=== PATIENT | female | born 1975 | race Caucasian/White ===

== ENCOUNTER → 2022-06-04 14:44 | Outpatient (CLI) | payer OTHER, MEDICAID, SELFPAY ==
--- NOTE | 2022-06-04 | DI.US.S_ITS ---
PROCEDURE: US PELVIC COMPLETE INDICATIONS: PELVIC PAIN TECHNIQUE: Real-time scanning was performed of the pelvic organs, with image documentation. Additional endovaginal scanning was necessary due to incomplete visualization of the adnexal and endometrial structures by transabdominal scanning. COMPARISON: [facility], , PELVIC COMPLETE, 06/15/2012, 10:51. FINDINGS: Uterus: Uterus is anteverted and normal in size at 11.1 x 6.5 x 5.7 cm. The myometrium is homogeneous. The endometrium measures 12.6 mm combined thickness. Ovaries: Right ovary measures 2.3 x 1.8 x 2.4 cm and the left 3.1 x 3.3 x 2.3 cm. Bilateral follicular cyst. No adnexal masses. Prominent by adnexal vessels. Other: No pathologic free abdominal or pelvic fluid. IMPRESSION: 1. Prominent by adnexal vessels which can be associated with pelvic congestion syndrome in the appropriate clinical setting. Multiparous women could have a similar appearance. We strive to produce accurate, complete, and clear reports of imaging services. To assist us in improving patient care, this report was composed using standard report templates and voice recognition software. Therefore, it may contain abnormal punctuation, insertions and/or omissions. Occasional wrong-word or sound-alike substitutions may occur. Though we review the report and make efforts to correct it, we do recommend that the report be read carefully in proper context to recognize any text inaccuracies. Dictated by: Brayan WEBSTER Interpreted: Luis Hagen MD on 06/04/2022 at 15:55 Transcribed by: ALEXANDER on 06/04/2022 at 15:56 Approved by: Luis Hagen M.D. on 06/04/2022 at 17:52
== END ==
PROVIDERS: Family Provider Family Medicine; PCP Family Medicine; Referring Provider Family Medicine; Visit Provider Family Medicine
DX: R10.2 Pelvic and perineal pain (principal); N94.89 Other specified conditions associated with female genital organs and menstrual cycle
CPT/HCPCS: 76830; 76856

== ENCOUNTER → 2022-09-11 13:23 | Outpatient (CLI) | payer OTHER, MEDICAID, SELFPAY ==
[2022-09-11 13:52] LABS: COVID19 -Nasal RAPID Negative (Negative)
== END ==
PROVIDERS: Family Provider Family Medicine; PCP Family Medicine; Visit Provider Obstetrics & Gynecology
DX: Z20.822 Contact with and (suspected) exposure to COVID-19 (principal); Z01.812 Encounter for preprocedural laboratory examination
CPT/HCPCS: 87635

== ENCOUNTER 2022-09-14 07:55 | Day surgery (SDC) | payer OTHER, MEDICAID, SELFPAY ==
[2022-09-09 08:10] VITALS: BMI 21.3
[2022-09-14] VITALS (14 sets, daily range): BP systolic 92–114; BP diastolic 46–65; PULSE 67–92; RESP 14–18; TEMP 35.8–36.9; O2SAT 97–100; BMI 20.3
--- NOTE | 2022-09-14 | PATH_ITS ---
[facility] Accession Number: [id number] No. of containers..01 Tissue . 01 Material submitted: . uterus - UTERUS AND BILATERAL FALLOPIAN TUBES . 01 Diagnosis: Uterus and Bilateral Fallopian Tubes; Hysterectomy and Bilateral Salpingectomy (Without Cervix or Adnexa): Endometrium: Proliferative phase endometrium without evidence of endometrial polyps, atypia, hyperplasia, or malignancy. Myometrium: Negative for leiomyomas, atypia or adenomyosis. Benign bilateral fallopian tubes without evidence of atypia or malignancy. Benign simple-lined cyst, consistent with paratubal cyst. MRV 09/17/2022 1442 Local . 01 Electronically signed: . Cass Smith MD, Pathologist NPI- [id number] . 01 Gross description: . The specimen is received in formalin labeled with the patient's name and uterus and bilateral fallopian tubes, and consists of a fragmented uterus (104 grams, 11.2 x 8.7 x 5.5 cm in aggregate) with two unoriented fimbriated fallopian tubes (6.6 x 0.7 cm and 6.5 x 0.8 cm, respectively) with no cervix or additional adnexa identified. The uterine serosa is maier and smooth with no adhesions or hemorrhage identified. The endometrium is red-brown and velvety and averages 0.1 cm thick with no polyps or lesions identified. Sectioning reveals a maier trabecular myometrium with no nodules or lesions identified, and the maximum thickness cannot be determined. . The longer fallopian tube has maier smooth serosa. Sectioning reveals an unremarkable stellate lumen. The shorter fallopian tube has congested smooth serosa with multiple small cystic structures measuring up to 0.1 cm in greatest dimension. Sectioning reveals an unremarkable stellate lumen. Also includes within the container is a detached thin smooth-walled cystic structure measuring 0.9 x 0.8 x 0.5 cm filled with maier serous fluid. Facilities Administrator sections are submitted as follows: . A1-A2: Facilities Administrator endometrium. A3: Possible full-thickness section. A4: Longer fallopian tube to include entire fimbriae and cross-sections. A5: Facilities Administrator serosa. A6: Reynolds fallopian tube to include entire fimbriae, cross-sections, and detached cystic structure. ([id number]) /MRV 09/17/2022 [facility] Local . 01 Pathologist provided ICD-10: N39.3, N94.89, R10.2 . 01 CPT . 850943 Specimen Comment: A courtesy copy of this report has been sent to [phone] Performed at: 01 [facility] [address] [place] [address], [place], [place] [id number] MD Osei Jack MD Phone: [phone]
[2022-09-14] MEDS: LACTATED RINGERS 1,000 ML 42 ML IV (08:36)
--- NOTE | 2022-09-14 08:56 | SUR.OPER ---
Lithotomy on padded OR bed. England Pad Positioner under torso. Head on pillow, arms padded and tucked at sides. Legs secured in padded yellow fins stirrups.
--- NOTE | 2022-09-14 09:15 | PM.PREOP ---
Pre-operative Note COVID-19 COVID-19 status: Negative Result date/Date tested (Pos, Neg/Pending): 09/11/22 Criteria for continued procedure: Continuing or worsening of significant or severe pain Interval Note History & Physical reviewed/Exam performed by Physician: Yes Changes to H&P: No
[2022-09-14] MEDS: CEFAZOLIN 2 GM/100 ML PREMIX 100 ML IV (09:53)
[2022-09-14] MEDS: BUPIVACAINE 0.5% W/ EPI (PF) 30 ML VIAL INJ (10:22)
[2022-09-14] MEDS: ROPIVACAINE 0.2% PF 2 MG/ML 10ML AMP 20 ML INJ (10:37)
--- NOTE | 2022-09-14 11:44 | PM.OP.1 ---
Operative Date/Time/Diagnoses Date of procedure: 09/14/22 Time of procedure: 11:44 Pre-op diagnosis: Pelvic pain with pelvic congestion syndrome and stress urinary incontinence Post-op diagnosis: same Procedure & Clinicians Procedure: Laparoscopic supracervical hysterectomy with bilateral salpingectomies an TVT exact retropubic suburethral sling Same procedure as scheduled: Yes Indications: Patient with significant pelvic pain with pelvic congestion syndrome seen on ultrasound and stress urinary incontinence Surgeon: Serenity Patel Screen Printing Loader Unloader: Jackelyn Chauhan Click Yes if Unassisted: No Anesthesia Type: General Operative Notes Findings: Normal appearing uterus, tubes, ovaries. Significant pelvic varicosities on the left side starting at the pelvic brim and going to the left infundibulopelvic ligament. Hypermobile urethra. Normal appearing bladder on cystoscopy with urine jets seen from the ureters bilaterally after placement of the sling needles with no seen in the bladder. Closure Type: primary Specimen(s): other (Uterus above the level of bladder and bilateral fallopian tubes) Prosthetic devices, grafts, tissues, transplants, or devices: TVT exact suburethral sling Applied: implant(s) (TVT exact suburethral sling) Estimated Blood Loss (mL): 150 Blood products transfused: none Procedure in detail: Patient is brought to the operating room where she underwent general anesthesia and [facility] She was prepped and draped in the usual sterile fashion. A check list was reviewed with the staff in the room prior to beginning of the case. Patient had pulsatile stockings in place and functional. 2 g of Ancef were in prior to beginning of the case.. A Atkins catheter was placed. A single-tooth tenaculum was placed on the anterior lip of the cervix and the cervix dilated to a #6 Hegar dilator. The uterine manipulator was placed through the cervix into the uterus with the balloon inflated with 3 mL of air. The area of the umbilical incision and the 5 mm right and left lower quadrant incisions were injected with Marcaine. An incision was made with scalpel. The verries needle was placed into the abdomen and confirmed in the appropriate place with withdrawal on a syringe and then free flow of fluid down through the needle. The abdomen was insufflated with CO2. The needle was removed and a 5 mm trocar placed without difficulty. There did not appear to be any damage is placement of the trocar. The right and left lower quadrant incisions were made with the scalpel and the trochars placed without damage to internal structures. The power seal was used to cauterize along the mesosalpinx followed by the round ligaments on both sides. The utero-ovarian ligaments were cauterized and cut. Sequential bites were taken down the broad ligaments. The uterine arteries were cauterized. An incision was made above the level bladder pushing the bladder away from the cervix. The ANTONIO loop was placed around the uterus and the uterus was amputated above the level of the bladder. Bleeding was controlled with the power seal. The monopolar spatula was used to cauterize in the endocervical canal. A supracervical incision was made and an 11 mm port placed. A 15 mm Endo Catch bag was placed in the abdomen. The uterus and tubes were placed in the bag and brought up through the suprapubic port site. The John O was placed. The uterus was hand morselized. The abdomen was reinsufflated and adequate hemostasis was noted. 20 cc of ropivacaine were placed in the abdomen over the cervix. The trochars were removed and the CO2 allowed escape from the abdomen. The fascia layer of the suprapubic site was repaired with 0 Polysorb suture. Skin was closed with 4-0 Monocryl suture at the suprapubic site and the other 3 sites. 15 mL of half percent Marcaine with epinephrine were diluted with 70 mL of saline 10 cc was injected around the mid urethra. An incision was made over the mid urethra with a scalpel. The incision was extended laterally. A Atkins catheter was placed with a catheter guide in place. The suprapubic exit sites were marked with a marking pen. The needles attached to the sling were placed from the bottom up and left in place. The catheter was removed and 300 mL of saline were placed in the bladder and cystoscopy was performed. A 70?? scope followed by a 0?? scope were used to look at the bladder and the urethra. There was no damage apparent with placement of the needles. Both ureters were seen to be functional. The graft was brought up loosely under the mid urethra. With sharp pressure against the bladder there was some leakage of urine. The plastic sheath was removed. The graft was cut under the skin of the suprapubic sites. Skin was closed with Steri-Strips. The vaginal incision was closed with 2-0 vicryl suture. Due to bleeding vaginal packing was placed. Atkins catheter was placed. Patient went to recovery room in good condition. Counts of instruments and sponges were correct. Jackelyn PAUL was present throughout the case to assist with holding the camera, retracting, cauterizing and cutting the structures on the left side of the patient, as well as assisting with morselization of the uterus. She also was present to retract for the TVT exact sling. Complications: none Post-operative Condition: stable Disposition: Acute Care Plan for aftercare: Vaginal packing and Atkins will be removed in 6 hours. Postvoid residual checks will be performed.
--- NOTE | 2022-09-14 12:48 | SUR.PHASEI ---
Dr Ba at bedside and shown blood spotting on lower abdomen dressing. No orders given.
[2022-09-14] MEDS: KETOROLAC 30 MG/ML VIAL IV ×2 (13:33→21:12)
[2022-09-14] MEDS: MORPHINE 2 MG/ML INJ IV (13:34)
[2022-09-14] MEDS: LACTATED RINGERS 1,000 ML 100 ML IV (14:03)
[2022-09-14] MEDS: OXYCODONE IR 5 MG TABLET PO ×2 (16:11→21:11)
[2022-09-14] MEDS: ACETAMINOPHEN 325 MG TABLET 650 MG PO (18:07)
[2022-09-15] MEDS: MORPHINE 2 MG/ML INJ IV ×2 (00:31→05:50)
[2022-09-15] MEDS: KETOROLAC 30 MG/ML VIAL IV ×2 (00:32→07:08)
[2022-09-15 01:19] VITALS: BP 101/50; PULSE 72; RESP 18; TEMP 36.4; O2SAT 97
[2022-09-15 04:48] VITALS: BP 94/43; PULSE 76; RESP 18; TEMP 36.5; O2SAT 96
[2022-09-15 05:31] LABS: Add Manual Diff / Slide Review NO; Basophils Absolute Auto 0 /uL (0-100); Basophils Percent Auto 0.3 % (0-2); Eosinophils Absolute Auto 0 /uL (0-450); Eosinophils Percent Auto 0.1 % (2-4); Hematocrit 33.7 % (36-46); Hemoglobin 11.4 g/dL (12.0-16.0); Lymphocytes Absolute Auto 900 /uL (1100-4500); Lymphocytes Percent Auto 10.4 % (25-40); Mean Corpuscular HGB Conc 33.7 % (30-36); Mean Corpuscular Hemoglobin 31.2 PG (26-34); Mean Corpuscular Volume 92.7 fL (80-100); Monocytes Absolute Auto 500 /uL (0-900); Neutrophils Absolute Auto 7400 /uL (1500-7000); Neutrophils Percent Auto 83.2 % (50-75); Platelet Count 208 X10^3/uL (150-400); Red Blood Cell Count 3.64 X10^6/uL (4.0-5.2); Red Cell Distribution Width 13.2 % (11.6-14.8); White Blood Cell Count 8.9 X10^3/uL (4.5-11.0)
[2022-09-15 07:46] VITALS: BP 111/66; PULSE 75; RESP 16; TEMP 36.6; O2SAT 100
[2022-09-15 07:58] VITALS: O2SAT 100
[2022-09-15] MEDS: ACETAMINOPHEN 325 MG TABLET 650 MG PO ×2 (10:10→15:58)
[2022-09-15] MEDS: IBUPROFEN 600 MG TABLET PO ×2 (10:10→15:57)
[2022-09-15] MEDS: GABAPENTIN 300 MG CAPSULE PO (11:02)
[2022-09-15 11:50] VITALS: BP 109/64; PULSE 72; RESP 20; TEMP 36.6; O2SAT 99
[2022-09-15] MEDS: DOCUSATE 100 MG CAPSULE PO (12:11)
[2022-09-15] MEDS: HYDROCODONE/ACET 5/325 TABLET 1 TAB PO (15:17)
--- NOTE | 2022-09-15 15:25 | CM.DANOTE ---
Pt is a 46 year old female that admitted on 09/14/2022 for planned surgical procedure. Pt has [place] [employer]. SW received update from teaching young that pt may have concerns about discharging home today. SW checked in with bedside RN who reports that pt is mostly concerned with pain management. BS RN will provide psycho education on pain management and will administer additional dose of pain medication prior to discharge. Plan: RN to discuss discharge concerns with pt and report back to SW with any needs. No further discharge planning needs at this time. JOHN Brown Discharge Planning/Care Management Advanced directive, confirm from FAMILY Start: 09/14/22 14:30 Freq: Q24H Status: Active Protocol: Document 09/15/22 14:30 EM (Rec: 09/15/22 14:45 EM [id number]) Advance Directive, confirm on record Time 14:45 Person contacted spouse Copy received No CM Discharge Assessment Start: 09/15/22 15:20 Freq: Status: Active Protocol: Document 09/15/22 15:20 TM (Rec: 09/15/22 15:25 TM [id number]) Discharge Planning Assessment Assigned Hole Puncher Strap JOHN Gao DPOA/Assigned Designee Name Margarito Bucio, Spouse Contact Information [phone] Advance Directives? No Advance Directives on File No History Provided By Medical Record Has Patient been admitted in last 30 No days? Prior Living Arrangements House Household Members spouse,children Type of transporation used prior to Drives own vehicle admit Independent with ADL's Yes Is patient alert and oriented? Yes Caregiver for Another No Comment Home with no CM needs. Discharge Plan Home Transportation Arrangement Spouse at bedside, will provide transport home. Referrals Initiated None needed Whiteboard Updated in Patient Room with Yes name and ext. # of Hole Puncher Strap Review Status In Process Please Provide Date Initial DC 09/15/22 Assessment Was Performed Next Review Type Continued Stay Review Pre-Anesthesia Assessment Start: 09/09/22 08:10 Freq: Status: Complete Protocol: Document 09/09/22 08:10 CAB (Rec: 09/09/22 08:30 CAB [id number]) Pre-Anesthesia Assessment Patient Information Reviewed Via Chart Review Comment COVID screen @ 09/11/22 Primary Care Provider Fiorella Ramos Seen Specialist in Last 12 Months Yes Specialist Seen Horologist Apprentice Primary Language Togolese Administrative Director Required No Height 180.34 cm Weight 69.4 kg Body Mass Index (BMI) 21.3 Barriers to Learning None Hx Anesthesia Reactions Yes: Didn't wake up easily Anesthesia Review Requested No Senior Net Developer Architect No Alcohol Intake Frequency Other: None Smoking Status Never smoker Substance Use Type does not use Pain Present Pain Reported History of Falling (Recent or History of No ) Patient is completely paralyzed or No completely immobile Mental Status Oriented to own ability Is patient on oxygen? No Hx Sleep Apnea No Currently Taking a Beta Levi No Anti-Coagulant Therapy No Has a Turf And Grounds Supervisor No Cardiac Testing No Hx Pacemaker/ICD No Pacemaker Rep Required? No Cardiac Clearance Received Not Applicable Bladder Pattern Incontinent, Stress Urinary Catheter Present No Hx Urinary Self Catheterization No Diabetes No Patient No Lactating No Presence of External or Internal Medical Yes: Right humerus Devices Marital Status Lives With spouse,children Patient Discharge Plan Description Return Home
--- NOTE | 2022-09-15 18:25 | PC.NURSE ---
Discharge note: Patient discharged home per MD order. Discharge instructions given to patient and spouse. Discussed importance of F/U with Dr. Ba in 2 weeks, s/sx of infections, and new medications. Both verbalized understanding of discharge instructions. Home via private vehicle, accompanied by spouse. Rx already picked up.
== END 2022-09-15 19:27 | disposition home or self-care (01) ==
LOC: OR 07:56 → AC 07:56
PROVIDERS: Specialist; Family Provider Family Medicine; PCP Family Medicine; Referring Provider Obstetrics & Gynecology; Visit Provider Obstetrics & Gynecology
PROC: 0UT94ZL Resection of Uterus, Supracervical, Percutaneous Endoscopic Approach (ICD-10-PCS; CPT 58542; principal; 2022-09-14 09:30)
PROC: 0TSD0ZZ Reposition Urethra, Open Approach (ICD-10-PCS; 2022-09-14 09:30)
DX: N94.89 Other specified conditions associated with female genital organs and menstrual cycle (principal); N39.3 Stress incontinence (female) (male); N36.41 Hypermobility of urethra; I86.2 Pelvic varices; N83.8 Other noninflammatory disorders of ovary, fallopian tube and broad ligament
CPT/HCPCS: 58542; 57288; 00848; 36415; 81025; 85025; C1771; J0330; J0690; J1100; J1885; J2270; J2405; J2704; J2795; J3010

== ENCOUNTER → 2022-10-26 15:01 | Outpatient (CLI) | payer OTHER, MEDICAID, SELFPAY ==
[2022-09-14 07:58] VITALS: BMI 20.3
[2022-10-28 07:53] LABS: Candida species Negative (Negative); Gardnerella vaginalis Negative (Negative); Trichomoas vaginalis Negative (Negative)
== END ==
PROVIDERS: Family Provider Family Medicine; PCP Family Medicine; Visit Provider Obstetrics & Gynecology
DX: N89.8 Other specified noninflammatory disorders of vagina (principal)
CPT/HCPCS: 81002; 87480; 87510; 87660

== ENCOUNTER → 2022-12-17 07:47 | Outpatient (CLI) | payer OTHER, MEDICAID, SELFPAY ==
[2022-09-14 07:58] VITALS: BMI 20.3
--- NOTE | 2022-12-17 07:47 | DI.US.S_ITS ---
PROCEDURE: US PELVIC COMPLETE INDICATIONS: LEFT OVARIAN CYST 6 WEEK FOLLOW UP TECHNIQUE: Real-time scanning was performed of the pelvic organs, with image documentation. Additional endovaginal scanning was necessary due to incomplete visualization of the adnexal and endometrial structures by transabdominal scanning. COMPARISON: [facility], US, US PELVIC COMPLETE WITH TRANSVAGINAL, 11/10/2022, 7:19. [facility], US, US PELVIC COMPLETE, 06/04/2022, 15:53. FINDINGS: Uterus: Hysterectomy Ovaries: The right ovary measures 3.2 x 3.2 x 3.2 cm, with a calculated ovarian volume of 17 cc. Within the right ovary, there is a simple appearing ovarian cyst that measures up to 2 5 cm. The left ovary measures 2.3 x 2.2 x 2 cm, with a calculated ovarian volume of 5.3 cc. Within the left ovary, there is a cyst with an internal daughter cyst that measures up to 16 mm. The previously seen abnormal focus of the left ovary is no longer seen. Less than 12 follicles can be seen in each ovary. No adnexal masses are seen. Other: No pathologic free abdominal or pelvic fluid. IMPRESSION: The previously seen abnormal focus of the left ovary has resolved. Physiologic appearing cysts can be seen involving both ovaries. Status post hysterectomy. We strive to produce accurate, complete, and clear reports of imaging services. To assist us in improving patient care, this report was composed using standard report templates and voice recognition software. Therefore, it may contain abnormal punctuation, insertions and/or omissions. Occasional wrong-word or sound-alike substitutions may occur. Though we review the report and make efforts to correct it, we do recommend that the report be read carefully in proper context to recognize any text inaccuracies. Dictated by: Paul Soto M.D. on 12/17/2022 at 12:02 Approved by: Paul Soto M.D. on 12/17/2022 at 12:05
== END ==
PROVIDERS: Family Provider Family Medicine; PCP Family Medicine; Referring Provider Obstetrics & Gynecology; Visit Provider Obstetrics & Gynecology
DX: N83.202 Unspecified ovarian cyst, left side (principal); N83.291 Other ovarian cyst, right side; R10.2 Pelvic and perineal pain; Z90.710 Acquired absence of both cervix and uterus
CPT/HCPCS: 76856

== ENCOUNTER 2025-10-03 20:43 | Emergency (ER) | payer OTHER, MEDICAID, SELFPAY ==
[2022-09-14 07:58] VITALS: BMI 20.3
[2025-10-03 20:59] VITALS: BP 123/60; PULSE 79; RESP 18; TEMP 37.2; O2SAT 100; BMI 20.2
--- NOTE | 2025-10-03 21:23 | ED_ITS ---
HPI - General Adult
--- NOTE | 2025-10-03 21:23 | ED.GENADULT ---
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 earlier today with injections upper and lower, requested no anesthesia and use of 10s units but the dentist apparently did not have that available in the office and did upper and lower local injections, no conscious sedation. Patient drove self home, 8, then later felt she had generalized weakness and fatigue. Denied chest pain or shortness of breath. Denied abdominal pain. Denied rash itching allergic reaction like symptoms. Trouble with swallowing. No focal numbness to face arm or leg. No focal weakness to face arm or leg. Related Data Previous Rx's ?Medication ?Instructions ?Recorded hydrocodone 5 mg-acetaminophen 325 1 tab PO Q4-6H PRN pain #30 tabs 10/08/22 mg tablet gabapentin 300 mg capsule 300 mg PO BID #60 caps 11/06/22 (Neurontin) Allergies Allergy/AdvReac Type Severity Reaction Status Date / Time doxycycline Allergy Unknown Verified 11/06/22 10:45 tetracycline Allergy Unknown Verified 11/06/22 10:45 Patient History Medical History (Updated 10/03/25 @ 22:37 by Jose Ham MD) Plantar warts Asthma Fractures Chicken pox Frequent UTI (~1996) Irritable bowel syndrome Skin cancer (~2019) Scoliosis (~1985) Chronic back pain Foot pain (~2021) Anemia EDS (Adriel-Danlos syndrome) Hemorrhoids (~2001) Colon polyps (~2009) BCC (basal cell carcinoma) (~2019) Raynaud's phenomenon TBI (traumatic brain injury) (1997) Pelvic congestion (~2009) Surgical History (Updated 09/14/22 @ 11:56 by Serenity Patel MD) Hx of inguinal hernia repair (09/2008) History of orthopedic surgery (10/1998) Anesthesia complication Family History (Updated 09/10/22 @ 20:38 by Toshia Carpenter) Father Diabetes mellitus History of heart disease Stroke Mother Lupus Grandfather Cancer Diabetes mellitus Grandfather Diabetes mellitus Family/Other EDS (Adriel-Danlos syndrome) Chronic pain Migraines POTS (postural orthostatic tachycardia syndrome) History of heart disease GERD (gastroesophageal reflux disease) Neurogenic thoracic outlet syndrome Sleep apnea Social History household members: spouse and children Smoking Status: Never smoker alcohol intake: never Smoking Status: Never smoker Exam Narrative Exam Narrative: GENERAL: Well-developed patient, in mild distress. HEAD: Atraumatic. Normocephalic. EYES: Pupils equal round and reactive. Extraocular motions intact. No scleral icterus. No injection or drainage. ENT: Nose without bleeding, purulent drainage. Throat without erythema, tonsillar hypertrophy or exudate. Airway patent. Oropharynx with good dentition, no obvious swelling of upper or lower gingiva. No buccal cheek swelling. NECK: Trachea midline. Non tender CARDIOVASCULAR: Regular rate and rhythm without murmurs, gallops, or rubs. RESPIRATORY: Clear to auscultation. Breath sounds equal bilaterally. No wheezes, rales, or rhonchi. GASTROINTESTINAL: Abdomen soft, non-tender, nondistended. EXTREMITIES: No edema or joint tenderness. BACK: Nontender without deformity or crepitance. No flank tenderness. NEURO: AOx3. Normal speech. No facial droop. Cranial nerves normal as tested. Motor 5/5 bilateral upper extremities and lower extremities. Sensation intact to light touch bilateral face arms legs. SKIN: No rash or erythema of visible areas Initial Vital Signs Initial Vital Signs: Vital Signs Temperature 99.0 F 10/03/25 20:59 Pulse Rate 79 10/03/25 20:59 Respiratory Rate 18 10/03/25 20:59 Blood Pressure 123/60 10/03/25 20:59 Pulse Oximetry 100 10/03/25 20:59 Oxygen Delivery Method Room Air 10/03/25 20:59 Course Vital Signs Vital signs: Vital Signs - 8 hr 10/03/25 22:47 Pulse Rate 75 Respiratory Rate 14 Blood Pressure 99/53 L Pulse Oximetry 998 H Oxygen Delivery Method Room Air Medical Decision Making MDM Narrative Medical decision making narrative: 50-year-old female in the emergency department while her daughter being seen for headache, has history of Adriel Danlos, status post dental work earlier today, had Marcaine injections left upper mouth and left lower mouth, drove self, ate food, then later that in the afternoon started feeling generalized fatigue, concerned that might be related to her recent dental anesthesia. Nonfocal exam. Afebrile. No indications for lab testing, though offered, she declined. No indications for imaging, patient agreed. Patient advised to consider intolerance to Marcaine/bupivacaine that was likely used in her dental extractions, avoid for now and consider as a possible drug allergy. Follow up with her dentist advised as planned. Discharged home with family. Return precautions discussed. Discharge Plan Departure Patient Disposition: Home Clinical Impression: Medication reaction Activity Restrictions/Additional Instructions: History of Adriel Danlos syndrome, previous dental procedures with TENS unit, had dental procedure this afternoon approximally 3:00 p.m., upper and lower left-sided injections of local anesthetic, no systemic oral or IV anesthetic, subsequently drove self home, ate, but this afternoon later felt like you had generalized fatigue otherwise unexplained. No focal weakness. Examination reassuring. Possible medication reaction to the local anesthetic used earlier today. Try to avoid bupivacaine lidocaine local anesthetic agents if possible. No specific treatment. Many hours since that effect, we would not anticipate any adverse problems with airway, does not seem consistent with allergic like reaction. We did discuss testing that might include EKG, blood work, looking for cardiac effects, declined. We discussed advanced imaging of the brain in the neck vessels, declined. Consider recheck with your regular doctor if symptoms are persisting at all tomorrow. Return to this/nearest emergency department for any change worsening symptoms or any concerns prior. Prescriptions: No Action hydrocodone-acetaminophen 5-325 mg tablet 1 tab PO Q4-6H PRN (Reason: pain) Qty: 30 0RF gabapentin [Neurontin] 300 mg capsule 300 mg PO BID Qty: 60 0RF Referrals: Fiorella Ramos MD [Primary Care Provider, [facility]] Stand Alone Forms: Patient Portal/API
[2025-10-03 22:47] VITALS: BP 99/53; PULSE 75; RESP 14; O2SAT 998
== END 2025-10-03 22:48 | disposition home or self-care (01) ==
PROVIDERS: Emergency Provider Emergency Medicine; Family Provider Family Medicine; PCP Family Medicine
DX: R53.1 Weakness (principal); R53.83 Other fatigue; T41.3X5A Adverse effect of local anesthetics, initial encounter
CPT/HCPCS: 99281